=== PATIENT | male | born 1965 | race Caucasian/White ===

== ENCOUNTER → 2016-12-25 | Outpatient (CLI) | payer OTHER ==
[2016-06-10 18:50] VITALS: BP 115/66
[~2016-12-25] MED LIST: ACET500T68 PO; ACET5SOL PO; ALBU8.5H6 IH; AZIT500T PO; BUPR1PAT2 TP; GABA-586 PO; HYDR-971 PO; IOHEXOL 180 MG/ML 10 ML VIAL. ONE; NAPR220C4 PO; OMEP20CA9 PO; POLY10DR OD; PRED50TA PO; RANI300T3 PO; methylPREDNISolone ACETATE 40 MG/ML VIAL. ONE; methylPREDNISolone ACETATE 80 MG/ML VIAL. ONE; no meds
--- NOTE | 2016-12-26 05:26 | PAIN ---
DATE OF SERVICE: 12/25/2016 DIAGNOSES: 1. Cervical radiculopathy with cervical degenerative disk disease. 2. Lumbar radiculopathy with low back pain. HISTORY OF PRESENT ILLNESS: The patient is a 51-year-old male, returns for followup, last seen on 09/26/2016. Status post cervical epidural steroid injection at that time with good results. The patient reports about 75-80% improvement, but now is about 50% or less as this worn off and pain has returned since about one month. The patient reports he has intermittent pain, intensity with some stiffness in the neck radiation to the right upper extremity as it was previously with stabbing and radiating, shooting pain, ranges from anywhere from 4-8 on a scale 10, currently 4. On exam today, the patient reports no new motor or sensory deficits, some increased fatigability in the right arm, but no loss of function. The patient reports no new motor or sensory deficits, no new bowel or bladder incontinence or other complaints. PHYSICAL EXAMINATION: VITAL SIGNS: The patient's blood pressure 114/70, pulse 64, respirations 18, temperature 97.7 degrees Fahrenheit, height is 5 feet 4 inches, weight is 172 pounds. GENERAL: The patient is awake, alert, oriented, appropriate, very pleasant demeanor. HEENT: Head shows normocephalic, atraumatic. Extraocular movements are intact and symmetrical. Oral cavity shows mucous membranes are moist and pink. Dentition is intact. NECK: Shows anterior throat supple without palpable lymphadenopathy noted. Swallow reflex is symmetrical. CHEST: Shows normal on inspection. Breath sounds are clear to auscultation bilaterally. HEART: Shows S1 and S2 clear. No murmurs auscultated. ABDOMEN: Soft, nontender and nondistended. No palpable organomegaly is noted. BACK: Shows spine grossly midline. Cervical paraspinous muscle shows some moderate tenderness with palpation, but symmetrical on inspection. No radiation with palpation, normal muscle girth, there is firm and mildly tender to moderately tender in the inferior aspect of the cervical paraspinous muscles, also superior medial trapezius, more on the right than the left, but again symmetrical. EXTREMITIES: Upper extremities show deep tendon reflexes 2+ in the biceps and triceps tendons. Motor exam is strong with mandrel puller strength rated at 5/5 as is biceps and triceps flexion. Peripheral pulses are 2+ in radial distribution. No peripheral edema is noted bilaterally. Options were discussed with the patient and the patient's old chart was reviewed and his current medication regimen updated. Current review of systems updated today as well. We will proceed with a cervical epidural steroid injection. Today is the first in this series. Risks were again discussed including, but not limited to bleeding, infection, possibility of epidural hematoma, subsequent neurologic compromise, dural puncture, headaches, spinal cord and/or nerve damage, side effects of steroid medication and poor results regarding pain control. The patient understands and wishes to proceed. The patient will return to clinic in approximately 2 weeks for followup. He was counseled to return appointment, activity level and side effects to be aware of. DIAGNOSIS: Cervical radiculopathy with cervical degenerative disk disease. PROCEDURE: Cervical epidural steroid injection in translaminar approach at C6-C7 level using C-arm fluoroscopic guidance under sterile prep and drape using local anesthetic. Medication injected is 120 mg Depo-Medrol plus 5 mL with preservative-free normal saline and 2 mL of Isovue for contrast. CONDITION AT DISCHARGE: Stable. The patient tolerated procedure well, had no complications. MYRA LOCKHART MD DR: SUZAN/adri JOB#: [id number] / [id number]
== END | disposition home or self-care (01) ==
LOC: PNCL 08:22
PROVIDERS: ATTEND Anesthesiology
DX: M50.123 Cervical disc disorder at C6-C7 level with radiculopathy (principal); K21.9 Gastro-esophageal reflux disease without esophagitis; M19.90 Unspecified osteoarthritis, unspecified site; Z87.891 Personal history of nicotine dependence; Z87.39 Personal history of other diseases of the musculoskeletal system and connective tissue; Z98.52 Vasectomy status
CPT/HCPCS: 62321; J1030; J1040

== ENCOUNTER → 2017-04-16 | Outpatient (CLI) | payer OTHER ==
[2016-06-10 18:50] VITALS: BP 115/66
[~2017-04-16] MED LIST changes: -BUPR1PAT2 TP; +BUPR1PAT8 TP; +MELO7.5T29 PO
--- NOTE | 2017-04-17 06:53 | PAIN ---
DATE OF SERVICE: 04/16/2017 PROGRESS NOTE FOR PAIN CLINIC DIAGNOSES: 1. Cervical radiculopathy with cervical degenerative disk disease. 2. Lumbar radiculopathy with low back pain. HISTORY OF PRESENT ILLNESS: The patient is a 51-year-old male who returns for followup status post previous cervical epidural steroid injections, last seen 12/25/2016. The patient did very well after the last injection with about 80% improvement, but now it is down to about a 50% improvement in the neck and bilateral upper extremities, worse on the right than the left. The patient reports it has increased over the past month or so. It is numb to the shoulders and his hands, causing headaches, increased pain into the right shoulder and upper extremity, rated as an 8 on a scale of 10 at its worst, is 6 on a scale of 10 currently. The patient reports no new motor or sensory deficits, but still significant tingling, sharp____ radiating and constant pain in the base of the neck and radiating to the right upper extremity. No current motor loss. PHYSICAL EXAMINATION: VITAL SIGNS: The patient's blood pressure is 131/77, pulse 62, respirations 18, temperature is 97.8 degrees Fahrenheit, height is 5 feet 4 inches, weight is 170 pounds. GENERAL: The patient is awake, alert, oriented, appropriate, has a very pleasant demeanor. HEENT: Shows normocephalic, atraumatic. Extraocular movements are intact and symmetrical. Oral cavity, mucous membranes are moist and pink. Dentition is intact. NECK: Shows anterior throat supple without palpable lymphadenopathy noted. Swallow reflex is symmetrical. CHEST: Shows normal on inspection. Breath sounds are clear to auscultation bilaterally. HEART: Shows S1 and S2 clear. No murmurs auscultated. ABDOMEN: Soft, nontender, nondistended. No palpable organomegaly is noted. No rebound or guarding demonstrated. MUSCULOSKELETAL: Back shows spine grossly in the midline. Cervical paraspinous musculature shows symmetrical on inspection, with palpation shows some mild tenderness with palpation, but only diffusely in the inferior aspect of the cervical paraspinous muscles as well as the superior, medial and lateral trapezius muscles and without radiation. Neck shows good rotational motion with some minor tenderness with extension, but not with forward flexion, right or left lateral rotation. Upper extremities show deep tendon reflexes at 2+ in the biceps and triceps tendons. Motor exam is strong with barrel waterer strength, rated at 5/5 as is biceps and triceps flexion and equal. PLAN: Options were discussed with the patient. The patient's old chart was reviewed as was his current medication regimen and updated, current review of systems updated today as well. We will proceed with a cervical epidural steroid injection today. It is the first in the series with fluoroscopic guidance. Risks were again discussed including, but not limited to bleeding, infection, possibility of epidural hematoma and subsequent neurological compromise, dural puncture, headaches, spinal cord and/or nerve damage, side effects of steroid medication and poor results regarding pain control. The patient understands and wishes to proceed. The patient will return to clinic in approximately 2 weeks for followup, was counseled on his return appointment, activity level and side effects to be aware of. DIAGNOSIS: Cervical radiculopathy with cervical degenerative disk disease. PROCEDURE: Cervical epidural steroid injection in translaminar approach at C6-C7 level using C-arm fluoroscopic guidance under sterile prep and drape using local anesthetic. MEDICATIONS INJECTED: 120 mg Depo-Medrol plus 5 mL of preservative-free normal saline and 2 mL of Isovue for contrast. CONDITION AT DISCHARGE: Stable. The patient tolerated the procedure well, had no complications. MYRA LOCKHART MD DR: SUZAN/adri JOB#: [id number] / [id number]
== END | disposition home or self-care (01) ==
LOC: PNCL 10:21
PROVIDERS: ATTEND Anesthesiology
DX: M50.123 Cervical disc disorder at C6-C7 level with radiculopathy (principal); M54.16 Radiculopathy, lumbar region; K21.9 Gastro-esophageal reflux disease without esophagitis; M19.90 Unspecified osteoarthritis, unspecified site; Z86.69 Personal history of other diseases of the nervous system and sense organs; Z87.39 Personal history of other diseases of the musculoskeletal system and connective tissue; Z72.0 Tobacco use; Z88.6 Allergy status to analgesic agent; Z88.8 Allergy status to other drugs, medicaments and biological substances
CPT/HCPCS: 62321; J1030; J1040

== ENCOUNTER → 2017-07-03 | Outpatient (CLI) | payer OTHER ==
[2016-06-10 18:50] VITALS: BP 115/66
[~2017-07-03] MED LIST changes: -IOHEXOL 180 MG/ML 10 ML VIAL. ONE; -methylPREDNISolone ACETATE 40 MG/ML VIAL. ONE; -methylPREDNISolone ACETATE 80 MG/ML VIAL. ONE
--- NOTE | 2017-07-03 09:38 | [facility] ---
MRI Cervical Spine Without Contrast History: Cervical radiculopathy, neck pain, bilateral upper extremity pain Technique: Multiplanar, multi sequential noncontrast MR imaging was performed of the cervical spine. Comparison: None available at this time Findings: There is motion degradation. Cervical vertebral body stature and AP alignment are adequate. Intervertebral disc spaces are overall adequate. There are posterior annular tears C5-C6 and C6-7. Cervical cord caliber is within normal limits significant focal signal abnormality. There is no significant abnormality of the cervical medullary junction. There is no significant marrow edema. C2-C3: Spinal canal and the neural foramina are adequate. C3-4: Spinal canal and neural foramina are adequate. There is mild right facet degenerative change. C4-C5: Neural foramina and spinal canal are adequate. C5-C6: There is a shallow protrusion more eccentric to the left lateral recess. Spinal canal is overall adequate. Neural foramina are adequate. There is bilateral facet degenerative change. C6-C7: There is very minimal disc osteophyte complex. Spinal canal and neural foramina are adequate. C7-T1: Neural foramina and spinal canal are adequate. Impression: 1. There is no significant cervical spinal stenosis or neural foramina compromise. There is very minimal spondylosis C6-7, also shallow protrusion in the left lateral recess at C5-6. Electronically signed by: Bear Pak MD (07/03/2017 9:35 AM) [id number]
== END | disposition home or self-care (01) ==
LOC: KCIC MRI 08:23
PROVIDERS: ATTEND Nurse Practitioner Family
DX: M54.12 Radiculopathy, cervical region (principal); M79.601 Pain in right arm; M79.602 Pain in left arm; M47.892 Other spondylosis, cervical region
CPT/HCPCS: 72141

== ENCOUNTER → 2017-08-19 | Outpatient (CLI) | payer OTHER ==
[~2017-08-19] VITALS: Ht 162.6 cm; Wt 74.4 kg
[~2017-08-19] MED LIST changes: +CONTRAST GIVEN MC PRN; +IOHEXOL 300 MG/ML 10ML VIAL. IT ONE; +LIDOCAINE 1% / SOD BICARB 8.4% 20 ML VIAL. IJ ONE
[2017-08-19 08:58] VITALS: BP 113/60
[2017-08-19 10:36] VITALS: BP 115/82
--- NOTE | 2017-08-19 11:46 | RAD ---
Cervical myelogram, 08/19/2017: History: Neck pain, numbness and tingling in all extremities Under local anesthesia, aseptic conditions and fluoroscopic guidance a lumbar puncture was performed at the mid L3 level utilizing a 25-gauge Janet spinal needle. Good clear CSF flow was obtained following which 11 cc of Omnipaque 300 was injected into the thecal sac. The spinal needle was then removed and hemostasis obtained. Appropriate digital imaging was then performed. 2.7 minutes of fluoroscopy time was utilized. 14 fluoroscopic spot images were recorded. The patient tolerated the procedure well and was sent to CT in good condition. The following findings were delineated on the myelogram: 1. There are minimal anterior extradural defects at the disc levels at and inferior to the C3-4 level. 2. No significant central spinal stenosis is seen. 3. There is symmetric opacification of the nerve root sleeves. CT of the cervical spine-post myelogram, 08/19/2017: Multidetector CT imaging was performed with multiplanar reconstructions produced. The following findings are delineated: 1. There are moderate scattered marginal spurs, most prominent in the lower cervical region. There are mild degenerative changes involving scattered facet joints bilaterally. No fracture or destructive bony lesion is seen. 2. No significant posterior disc bulge or protrusion is seen at C2-3, C3-4 or C4-5. There is minimal marginal spurring laterally on both sides at these levels. The central spinal canal and neural foramina are well-maintained. 3. The lower cervical images are of suboptimal quality due to artifacts emanating from the patient's shoulders. At C5-6 there is mild posterior disc bulging and spurring centered to the left of midline. The central spinal canal is well-preserved, measuring 12 mm in AP diameter at the midline. No significant foraminal stenosis is seen. 4. At C6-7 there is mild posterior marginal spurring and disc bulging at the midline. The central spinal canal measures 11 mm in AP diameter at the midline. The neural foramina are well maintained. 5. C7-T1 there is mild marginal spurring. No significant central spinal or foraminal stenosis is seen. IMPRESSION: Mild scattered degenerative changes in the lower cervical spine as described above, without evidence of significant spinal stenosis or disc herniation
== END | disposition home or self-care (01) ==
LOC: RAD 08:43
PROVIDERS: ATTEND Neurological Surgery
DX: M54.12 Radiculopathy, cervical region (principal); M47.892 Other spondylosis, cervical region; R20.0 Anesthesia of skin
CPT/HCPCS: 72126; 72240; Q9967

== ENCOUNTER → 2017-11-19 | Outpatient (CLI) | payer OTHER | END | disposition home or self-care (01) | LOC: KCIC 14:36 | DX: M77.31 Calcaneal spur, right foot (principal); M77.51 Other enthesopathy of right foot and ankle | CPT/HCPCS: 73630 ==

== ENCOUNTER 2018-04-28 11:05 | Emergency (ER) | payer OTHER ==
[2018-04-28 11:42] LABS: ADD MAN DIFF? NO
[2018-04-28 11:45] LABS: BASO % 1 % (0-3); EOS # 0.2 x10^3/uL (0.0-0.7); EOS % 3 % (0-3); HEMATOCRIT 47.4 % (39.0-53.0); HEMOGLOBIN 16.3 g/dL (13.0-17.5); LYMPH # 2.1 x10^3/uL (1.0-4.8); LYMPH % 30 % (24-48); MEAN CORPUSCULAR HEMOGLOBIN 29 pg (25-35); MEAN CORPUSCULAR HGB CONC 34 g/dL (31-37); MEAN CORPUSCULAR VOLUME 85 fL (79-100); MONO # 0.7 x10^3/uL (0.0-1.1); MONO % 10 % (0-9); NEUT % 57 % (31-73); PLATELET COUNT 257 x10^3/uL (140-400); RED CELL DISTRIBUTION WIDTH 14.6 % (11.5-14.5)
[2018-04-28 12:03] LABS: ANION GAP 11 (6-14); BLOOD UREA NITROGEN 18 mg/dL (8-26); CALCIUM 9.1 mg/dL (8.5-10.1); CARBON DIOXIDE 25 mmol/L (21-32); CHLORIDE 107 mmol/L (98-107); GFR 78.8; GLUCOSE 90 mg/dL (70-99); POTASSIUM 4.3 mmol/L (3.5-5.1); SODIUM 143 mmol/L (136-145)
[2018-04-28 12:06] LABS: ALBUMIN 4.2 g/dL (3.4-5.0); ALK PHOS 86 U/L (46-116); ALT (SGPT) 47 U/L (16-63); AST (SGOT) 19 U/L (15-37); DIRECT BILIRUBIN 0.2 mg/dL (0.0-0.2); LIPASE 139 U/L (73-393); TOTAL PROTEIN 6.9 g/dL (6.4-8.2)
[2018-04-28 12:07] LABS: PARTIAL THROMBOPLASTIN TIME 29 SEC (24-38); PROTHROMBIN TIME PATIENT 12.5 SEC (11.7-14.0)
[2018-04-28 12:08] LABS: TROPONINI < 0.017 ng/mL (0.000-0.055)
[2018-04-28 12:12] LABS: NT-PRO BNP 15 pg/mL (0-124)
[2018-04-28] MEDS: IOHEXOL 300 MG/ML 100ML VIAL. IV (13:37)
[2018-04-28] MEDS ORDERED: CONTRAST GIVEN. MC (13:45)
[2018-04-28 15:00] LABS: TROPONINI < 0.017 ng/mL (0.000-0.055)
[2018-04-28] MEDS: ASPIRIN CHEWABLE 81 MG TABLET. PO (15:27)
== END 2018-04-28 15:28 | disposition home or self-care (01) ==
LOC: ER 11:05
DX: R07.89 Other chest pain (principal); K21.9 Gastro-esophageal reflux disease without esophagitis; R00.1 Bradycardia, unspecified; Z88.6 Allergy status to analgesic agent; Z88.8 Allergy status to other drugs, medicaments and biological substances
CPT/HCPCS: 36415; 71045; 71275; 80048; 80076; 83690; 83880; 84484; 85025; 85610; 85730; 93005; 99285; Q9967